=== PATIENT | female | born 1945 ===

== ENCOUNTER → 2020-01-04 06:00 | Outpatient (CLI) | payer OTHER ==
[~2020-01-04 06:00] MED LIST: NUPLAZID34 MG PO; SINEMET 25-1001 EACH PO
== END | disposition home or self-care (01) ==
LOC: ADM 12-24 11:30 → LAB 06:00 → CIR.AMB 01-07 07:15 → EDSTATUS 01-07 11:30 → CIR.AMB 01-07 11:30
DX: R10.2 Pelvic and perineal pain (principal); D25.0 Submucous leiomyoma of uterus; D25.1 Intramural leiomyoma of uterus; Z01.818 Encounter for other preprocedural examination